=== PATIENT | female | born 1995 | race Caucasian/White ===

== ENCOUNTER → 2018-09-19 | Outpatient (CLI) | payer OTHER ==
--- NOTE | 2018-09-19 18:41 | Diagnostic Imaging Report ---
INDICATION: Pelvic pain, history of polycystic ovary. Pelvic sonography performed with transabdominal and transvaginal views. The uterus measures 7.4 x 4.6 x 3.5 cm. Endometrium measures 1 cm in thickness. The right ovary measures 2.6 x 2.3 x 1.6 cm and appears normal. The left ovary measures 2.6 x 2.4 x 2.8 cm and appears normal. There is color flow to both ovaries. There appears to be an area of questionable free fluid adjacent to the right ovary measuring 2.7 x 1.9 x 1.6 cm. IMPRESSION: Fluid density in the area adjacent to the right ovary which is probably due to free fluid, measuring about 2.7 x 1.9 x 1.6 cm. Ovaries and uterus are otherwise unremarkable. Consider follow-up as clinically warranted. Dictated by: Dictated on workstation # [id number]
== END ==
LOC: RAD 12:50
PROVIDERS: ATTEND Obstetrics & Gynecology
DX: R10.2 Pelvic and perineal pain (principal); Z87.42 Personal history of other diseases of the female genital tract
CPT/HCPCS: 76830; 76856

== ENCOUNTER 2018-10-09 05:50 | Outpatient (CLI) | payer OTHER ==
[~2018-10-09] VITALS: Ht 160 cm; Wt 53.5 kg
== END 2018-10-09 14:44 | disposition home or self-care (01) ==
LOC: PREOP 05:50
PROVIDERS: ATTEND Obstetrics & Gynecology
DX: Z01.818 Encounter for other preprocedural examination (principal)

== ENCOUNTER 2018-11-24 05:30 | Outpatient (CLI) | payer OTHER ==
[~2018-11-24] VITALS: Ht 160 cm; Wt 53.5 kg
[2018-11-24] MEDS ORDERED: BIRTH CONTROL PO (10:40)
== END 2018-11-24 10:49 | disposition home or self-care (01) ==
LOC: PREOP 05:30
PROVIDERS: ATTEND Obstetrics & Gynecology
DX: Z01.818 Encounter for other preprocedural examination (principal)

== ENCOUNTER 2018-12-04 07:39 | Day surgery (SDC) | payer OTHER ==
[~2018-12-04] VITALS: Ht 160 cm; Wt 55.8 kg
[~2018-12-04 07:39] MED LIST: BIRTH CONTROL PO
[2018-12-04] MEDS ORDERED: ceFAZolin INJECTION 1,000 MG in WATER (STERILE) FOR INJECTION 10 ML IV ONE (08:00)
[2018-12-04] MEDS ORDERED: CATHETER FLUSH 10 ML SYR IV PRN (08:00)
[2018-12-04 08:05] VITALS: BP 132/94
[2018-12-04] MEDS: LACTATED RINGERS 1,000 ML IV PRN ×2 (08:05→11:10)
[2018-12-04] MEDS ORDERED: ONDANSETRON 4 MG/2 ML (SDV) Z0FRAN ONE ×2 (08:06→09:50)
[2018-12-04] MEDS ORDERED: FAMOTIDINE 20MG/2ML IV (PEPCID) ONE (08:06)
[2018-12-04] MEDS ORDERED: SCOPOLAMINE 1.5 MG (TRANSDERM-SCOP) PATCH ONE (08:06)
[2018-12-04] MEDS ORDERED: ONDANSETRON 4 MG/2 ML (SDV) Z0FRAN IV ONE (08:15)
[2018-12-04] MEDS ORDERED: FAMOTIDINE 20MG/2ML IV (PEPCID) IV ONE (08:15)
[2018-12-04] MEDS ORDERED: SCOPOLAMINE 1.5 MG (TRANSDERM-SCOP) PATCH TOP ONE (08:15)
[2018-12-04 08:16] LABS: BASOPHILS % (AUTO) 0 % (0-10); EOSINOPHILS % (AUTO) 1 % (0-10); HEMATOCRIT 40 % (35-52); HEMOGLOBIN 13.7 G/DL (11.5-16.0); LYMPHOCYTES # (AUTO) 1.7 X 10^3 (1.0-4.0); LYMPHOCYTES % (AUTO) 32 % (12-44); MEAN CORPUSCULAR HEMOGLOBIN 31 PG (25-34); MEAN CORPUSCULAR HGB CONC 34 G/DL (32-36); MEAN CORPUSCULAR VOLUME 90 FL (80-99); MEAN PLATELET VOLUME 8.9 FL (7.4-10.4); MONOCYTES # (AUTO) 0.3 X 10^3 (0.0-1.0); MONOCYTES % (AUTO) 6 % (0-12); NEUTROPHILS # (AUTO) 3.3 X 10^3 (1.8-7.8); NEUTROPHILS % (AUTO) 62 % (42-75); PLATELET COUNT 375 10^3/uL (130-400); RED CELL DISTRIBUTION WIDTH 12.2 % (10.0-14.5); WHITE BLOOD COUNT 5.3 10^3/uL (4.3-11.0)
[2018-12-04] MEDS ORDERED: LIDOCAINE PF 2% 5 ML (XYLOCAINE) VIAL ONE (09:50)
[2018-12-04] MEDS ORDERED: SEVOFLURANE (ULTANE) 15 ML INHAL SOLN ONE (09:50)
[2018-12-04] MEDS ORDERED: DEXAMETHASONE 10 MG/ML (DECADRON) 1 ML VIAL ONE (09:50)
[2018-12-04] MEDS ORDERED: proPOfol 200 MG/20 ML (DIPRIVAN) VIAL IV ONE (09:50)
[2018-12-04] MEDS ORDERED: fentaNYL INJECTION 100 MCG/2 ML AMP ONE (09:51)
[2018-12-04] MEDS ORDERED: MIDAZOLAM 2 MG/2 ML (VERSED) VIAL ONE (09:51)
[2018-12-04] MEDS ORDERED: BUPIVACAINE 0.25% 30 ML (SENSORCAINE) VIAL ONE (10:16)
[2018-12-04] MEDS ORDERED: BUP/EPI 0.25% 1:200,000 (MARCAINE) 10 ML VIAL IJ ONE ×2 (10:29)
[2018-12-04] MEDS ORDERED: D5 LR IV SOLUTION 1,000 ML IV SCH (10:32)
--- NOTE | 2018-12-04 10:32 | Progress Note-Pre Operative ---
Pre-Operative Progress Note H&P Reviewed The H&P was reviewed, patient examined and no changes noted. Date Seen by Provider: December 04, 2018 Time Seen by Provider: 10:15 Date H&P Reviewed: December 04, 2018 Time H&P Reviewed: 10:00 Pre-Operative Diagnosis: Labial hypertrophy KYRIE SCALES DO December 04, 2018 10:32
--- NOTE | 2018-12-04 10:36 | Discharge Inst-Women's Service ---
Discharge Inst-Women's Serv Depart Medication/Instructions New, Converted or Re-Newed RX: RX on Chart Consults/Follow Up Additional Follow Up: Yes Orders/Referrals Dr. Healy in 4-6 weeks Activity Activity: Activity as Tolerated Driving Instructions: No Driving for 1 Week NO SMOKING: NO SMOKING Nothing Inside Vagina: No Douching, No Cactus, No Tampons Diet Discharge Diet: No Restrictions Symptoms to Report to : Bleeding Excessive, Pain Increased, Fever Over 101 Degrees F, Vaginal Bleeding Increase, Questions/Concerns For Any Problems or Questions: Contact Your Physician Skin/Wound Care Infection Signs and Symptoms: Increased Redness, Foul Odor of Wound, Increased Drainage, Skin Itchy or Has a Rash, Increased Swelling, Temperature Above 101 F Operative Area Clean and Dry: Keep Incision Clean/Dry Stitches/Korin/Dermabond: Dermabond, Care of Stitches Bathing Instructions: KYRIE Marcus DO December 04, 2018 10:36
[2018-12-04] MEDS ORDERED: ACHD5005 PO (10:37)
[2018-12-04] MEDS ORDERED: IBUP-1773 PO (10:37)
[2018-12-04] MEDS ORDERED: ONDANSETRON 4 MG/2 ML (SDV) Z0FRAN IVP PRN ×2 (10:45→11:15)
[2018-12-04] MEDS ORDERED: HYDROcodone/APAP 5 MG/325 MG (LORTAB) TAB PO PRN (10:45)
[2018-12-04] MEDS ORDERED: KETOROLAC 30 MG/ML VIAL IVP ONE (10:45)
[2018-12-04 11:08] VITALS: BP 118/78
[2018-12-04] MEDS ORDERED: PROMETHAZINE INJ 25 MG/ML (PHENERGAN) AMP IVP ONE (11:15)
[2018-12-04] MEDS ORDERED: MEPERIDINE (DEMEROL) INJ 50 MG/ML IVP ONE (11:15)
[2018-12-04] MEDS ORDERED: morphine INJ 10 MG/ML 1ML (SYR OR VIAL) IVP ONE (11:15)
[2018-12-04] MEDS ORDERED: HYDROmorphone 2 MG/ML VIAL (DILAUDID) IV ONE (11:15)
[2018-12-04 12:10] VITALS: BP 132/81
[2018-12-04 12:40] VITALS: BP 117/74
[2018-12-04 13:10] VITALS: BP 116/75
--- NOTE | 2018-12-04 13:41 | Anesthesia-General Post-Op ---
General Patient Condition Mental Status/LOC: Same as Preop Cardiovascular: Satisfactory Nausea/Vomiting: Absent Respiratory: Satisfactory Pain: Controlled Complications: Absent Post Op Complications Complications None Follow Up Care/Instructions Patient Instructions None needed. Anesthesia/Patient Condition Patient Condition Patient is doing well, no complaints, stable vital signs, no apparent adverse anesthesia problems. No complications reported per nursing. D/C home per [facility] [place] Criteria: Yes MIKE MUNOZ CRNA December 04, 2018 13:41
--- NOTE | 2018-12-04 15:32 | OPERATIVE REPORT ---
DATE OF SERVICE: PREOPERATIVE DIAGNOSES: A 23-year-old female with labial hypertrophy. POSTOPERATIVE DIAGNOSES: A 23-year-old female with labial hypertrophy. PROCEDURE: Labioplasty of the left labia minora. SURGEON: Kyrie Scales DO ANESTHESIA: LMA general. ESTIMATED BLOOD LOSS: Minimal. URINE OUTPUT: Not recorded. FLUIDS: 600 mL of lactated Ringer solution. SPECIMENS SENT: None. INDICATIONS: This 23-year-old female is the patient who had seen me approximately two to three months ago to discuss concern with one labia being larger than the other. She also had other general concerns involving androgen levels and was found to have elevated levels of DHEAS. She was started on Faith which she has shown some improvement in a month and a half that she has been on it; however, she still wishing to proceed with labioplasty due to enlargement of the left labia more than the right. Risk of the procedure was discussed with the patient in detail including risk of bleeding, infection, permanent scarring with the labia. After all of her questions were answered, consent was obtained in the preoperative area and the patient was taken to the operating room. OPERATIVE REPORT IN DETAIL: Once in the operating room, general anesthesia was found to be adequate. She was placed in the dorsal lithotomy position, prepped and draped in normal sterile fashion. The labia we extended next to each other and the left is significantly larger than the right. The right labia is outlined on to the left labia using a marking pen, which gives me a margin to make my dissection and excision of the excess labial tissue. I then infiltrate the labia itself using 0.25% Marcaine with epinephrine. I then make my incision down my marking pen line excising the excess labia and then reapproximated the cutaneous layer using 4-0 Monocryl in a running fashion, after which there was no active bleeding noted from any of my dissection planes. The patient tolerated the procedure well and sent to recovery area in stable condition. Job ID: [id number] DocumentID: [id number] Dictated Date: 12/04/2018 12:38:52 Bonbon Dipper Date: 12/04/2018 15:31:05 Dictated By: KYRIE SCALES DO [facility]
== END 2018-12-04 13:10 | disposition home or self-care (01) ==
LOC: SDC 07:39
PROVIDERS: ATTEND Obstetrics & Gynecology
DX: N90.60 Unspecified hypertrophy of vulva (principal)
CPT/HCPCS: 36415; 84703; 85025; 86850; 86900; 86901; 87081; 94664